=== PATIENT | male | born 1965 | race Two or more races ===

== ENCOUNTER → 2022-09-11 09:05 | Outpatient (BNVA) | payer OTHER, SELFPAY | PROVIDERS: PCP Registered Nurse; Visit Provider Nurse Practitioner Family | DX: R35.0 Frequency of micturition (principal); R35.1 Nocturia; R39.12 Poor urinary stream | CPT/HCPCS: 51798; 99202 ==

== ENCOUNTER 2022-10-27 09:21 | Outpatient (REF) | payer OTHER, SELFPAY ==
--- NOTE | ~2022-10-27 | US_ITS ---
EXAMINATION: US RETROPERITONEAL COMPLETE (RENAL) CLINICAL INFORMATION: Nocturia. COMPARISON: None available. TECHNIQUE: Real-time imaging of the kidneys and bladder. FINDINGS: RIGHT KIDNEY: 11.1 x 6.3 x 6.1 cm (SAG x AP x TRV). The kidney is normal in size, contour, and echogenicity. Renal cortical thickness is normal. No calculi or focal parenchymal lesions. No hydronephrosis. Trace renal pelviectasis. Echogenic foci in the lower pole without definite shadowing appears to reflect a vascular reflector. LEFT KIDNEY: 11.3 x 6.3 x 5.4 cm (SAG x AP x TRV). The kidney is normal in size, contour, and echogenicity. Renal cortical thickness is normal. No calculi or focal parenchymal lesions. No hydronephrosis. BLADDER: Well distended. There is equivocal bladder wall thickening measuring 6 mm.. Bilateral ureteral jets are demonstrated. Prevoid bladder volume is 362 mL. Postvoid bladder volume is 59 mL. ADDITIONAL FINDINGS: Prostate volume of 53 which is mildly enlarged. US/US retroperitoneal comp IMPRESSION: Equivocal bladder wall thickening, consider correlation with symptoms of cystitis. Small postvoid bladder residual. Right renal pelviectasis without av hydronephrosis. Prostatomegaly..
[2022-10-27 11:30] LABS: Prostate Specific Antigen 0.71 ng/mL (<0.05-4.0)
== END 2022-10-27 09:22 | disposition home or self-care (01) ==
LOC: HO.US 09:21
PROVIDERS: PCP Registered Nurse; Visit Provider Nurse Practitioner Family
DX: Z12.5 Encounter for screening for malignant neoplasm of prostate (principal); R35.1 Nocturia; R35.0 Frequency of micturition
CPT/HCPCS: 36415; 76770; 84153

== ENCOUNTER → 2022-11-12 09:37 | Outpatient (BNVA) | payer OTHER, SELFPAY | PROVIDERS: PCP Registered Nurse; Visit Provider Nurse Practitioner Family | DX: R39.12 Poor urinary stream (principal); R35.0 Frequency of micturition; R35.1 Nocturia; N52.9 Male erectile dysfunction, unspecified | CPT/HCPCS: 51798; 99212 ==

== ENCOUNTER 2023-02-15 09:25 | Outpatient (AMB) | payer OTHER, SELFPAY ==
--- NOTE | 2023-02-15 09:26 | A.OFFVIS_ITS ---
Intake Intake Visit Reasons: 3m/PVR Intake Note: Patient is present for follow up nocturia/erectile dysfunction Urology Medications: d/c terazosin, tadalafil Blood Thinner: none PVR: 32ml's Cardiology Technologist Required: Yes Cardiology Technologist Name: Grant (Alis) Accompanied by: Self / Same As Patient Allergies No Known Allergies Allergy (Verified 02/15/23 10:11) Medication List - Last Reconciled 02/15/23 by CLAUDINE Browne tadalafil (Cialis) 20 mg PO DAILY PRN 90 days tadalafil (Cialis) 5 mg PO DAILY 90 days HPI HPI Comments History of Present Illness Details Florencia is a 57 year old Ukarine/Ghanaian speaking male patient of Dr. Vega. He presents to the office today for follow a follow up. Of note, patient was previously seen approximately 3 months at which time he was started on low dose cialis daily and PRN on demand for sexual activity. In discussion with the patient today he reports improvement in erectile dysfunction with low- dose Cialis daily and p.r.n. on demand. He discusses utilizing 5-10 mg on demand for sexual activity with good effect. However, he continues to report lower urinary tract symptoms. He reports he continues with lower abdominal/bladder pressure and discomfort and feelings of incomplete bladder emptying. Patient was previously trialed on 5 mg of terazosin daily with increase to 10mg with no improvement. Recent retroperitoneal ultrasound showing bilateral kidneys with no calculi, lesions, and or hydronephrosis. The bladder was well distended. There is equivocal bladder wall thickening measuring 6 mm with reccomendations to consider correlation with symptoms of cystitis. Prevoid bladder volume was approximately 360 mL. Postvoid bladder volume is approximately 60 mL. PSA -11/01-- 0.7. When asked he denies urinary urgency, urinary frequency, incontinence, hematuria, flank pain, fever, and or chills. In office urinalysis within normal limits. PVR 32 mL. Discussed treatment of low-dose antibiotics for question of cystitis versus in office cystoscopy for further assessment evaluation. Discussed at length potential causes for lower urinary tract symptoms. Patient otherwise denies any issues or concerns at this time. [facility] Medical History Benign prostatic hyperplasia with weak urinary stream Chronic midline low back pain without sciatica History of gallstones History of kidney stones Surgical History History of back surgery Review of Systems Const All systems reviewed & are unremarkable except as noted in HPI and below Reports as per HPI Eyes Reports no additional complaints ENT Reports no additional complaints Card Reports no additional complaints Resp Reports no additional complaints GI Reports no additional complaints Reports as per HPI Musc Reports no additional complaints Neuro Reports no additional complaints Psych Reports no additional complaints Endo Reports no additional complaints Jonathan/Lymph Reports no additional complaints Aller/Immun Reports no additional complaints Physical Exam Const General: cooperative, healthy appearing, comfortable, no acute distress, well developed, alert and awake Nutritional Appearance: average body habitus Orientation/consciousness: patient oriented x3 Limitations: no limitations HEENT Head: Yes normal to inspection, Yes normocephalic and Yes atraumatic Ears: hearing grossly normal bilaterally Eyes General: appearance normal, both eyes and all related structures Neck Neck: Yes normal visual inspection and Yes trachea midline Chest Chest palpation & inspection: normal inspection of the chest Resp Effort & Inspection: normal respiratory effort and able to speak in complete sentences Cardio Rate: regular rate GI Inspection: Yes normal to inspection General: Yes no CVA tenderness Back/Spine/Pelvis Back: no CVA tenderness Skin General skin exam: no rashes or lesions noted Neuro General: patient oriented x3 Extrem General: Yes normal to inspection Psych Appearance: grossly normal and well kempt Mental Status: mental status grossly normal Speech and movement: Normal speech and movement present and Clear speech present Affect: normal affect Attitude: cooperative Thought process: Normal thought process present Thought content: Normal thought content present Insight: Good insight present (Psych) Judgement: Good judgement present (Psych) Office Procedures Post Void Residual Post Residual Void Post Void Residual (PVR): 32 [id number] Void Residual by ultrasound Assessment & Plan Assessment & Plan (1) Erectile dysfunction: Code(s): N52.9 - Male erectile dysfunction, unspecified (2) Sensation of pressure in bladder area: Code(s): R39.89 - Other symptoms and signs involving the genitourinary system (3) Incomplete bladder emptying: Code(s): R33.9 - Retention of urine, unspecified Plan In office urinalysis results reviewed with the patient today; as noted above. PVR 32 mL. Continue low-dose 5 mg Cialis with p.r.n. on demand for sexual activity; refills provided Discussed at length question of cystitis and treatment with low-dose antibiotics verses in office cystoscopy for further assessment evaluation. Discussed at length bladder triggers/irritants. Discussed, educated, and instructed on the importance of drinking plenty of water daily. Follow-up in office cystoscopy. Orders: Orders Testosterone, Free/Total Today N52.9 - Male erectile dysfunction, unspecified, R53.83 - Other fatigue AMB Post Void Residual by ultrasound Today R35.1 - Nocturia Medications: Ref[facility]Cial[facility] [id number] 5 mg PO DAILY 90 days 90 tabs 1RF tadalafil (Cialis) administer approximately 30min before sexual activity; do not use more than 1 dose per 24hrs [facility] [id number] 20 mg PO DAILY 90 days PRN 30 tabs 1RF sexual activity Coding Level of Care Code Est Pt Level 3 (39537) Diagnoses Erectile dysfunction N52.9 Sensation of pressure in bladder area R39.89 Incomplete bladder emptying R33.9 CPT Codes Post Residual Void - PVR CPT Code: 91789-Xivl Void Residual by ultrasound ([id number])
== END 2023-02-15 10:28 | disposition home or self-care (01) ==
PROVIDERS: Visit Provider Nurse Practitioner Family
DX: N52.9 Male erectile dysfunction, unspecified (principal); R39.89 Other symptoms and signs involving the genitourinary system; R33.9 Retention of urine, unspecified
CPT/HCPCS: 99213

== ENCOUNTER → 2023-02-15 09:25 | Outpatient (BNVA) | payer OTHER, SELFPAY | PROVIDERS: Visit Provider Nurse Practitioner Family | DX: N52.9 Male erectile dysfunction, unspecified (principal); R39.89 Other symptoms and signs involving the genitourinary system; R33.9 Retention of urine, unspecified | CPT/HCPCS: 51798; 99212 ==

== ENCOUNTER 2023-03-26 09:13 | Outpatient (AMB) | payer OTHER, SELFPAY ==
--- NOTE | 2023-03-26 09:17 | MHC.OFFVIS ---
Intake Intake Visit Reasons: cysto Hairspring Vibrator Name: Tamara [id number] Accompanied by: Self / Same As Patient Allergies No Known Allergies Allergy (Verified 03/26/23 10:10) HPI HPI Comments History of Present Illness Details Florencia is a 57-year-old male who presents today to the office for a follow-up. 03/26/2023? He is followed today for cystoscopy procedure. The patient is a Ukarian speaking male. Certified video associate loan officer was present during the visit, no: [id number]. He has seen Nurse Practitioner Shira Johnson on 02/15/2023 for erectile dysfunction. The patient was advised to continue low-dose 5 mg Cialis with cialis 20 mg p.r.n, and he was advised to follow-up in office for Cystoscopy. I reviewed the retroperitoneum US results from 10/27/2022 revealed equivocal bladder wall thickening. Small postvoid bladder residual. Right renal pelviectasis without av hydronephrosis. Prostatomegaly. I reviewed the PSA results from 10/27/2022 revealed 0.71 ng/mL. Cystoscopy procedure: Consent was obtained to perform cystoscopy procedure. The patient was provided naproxen 500 mg, lidocaine 2 % and ciprofloxacin 500 mg x 1 dose pre-procedure today. Cystoscopy findings: moderate trabeculations, cellule changes and bilobar enlargement of the prostate; no suspicious bladder lesion found. Plan: Continue Cialis 5 mg daily. Start tamsulosin 0.4 mg in the evening. Discussed the side effects of tamsulosin may include retrograde ejaculation. Follow-up with the OUTDOOR RECREATION SPECIALIST in 3 months. [facility] Medical History Chronic midline low back pain without sciatica Benign prostatic hyperplasia with weak urinary stream History of kidney stones History of gallstones Surgical History History of back surgery Review of Systems Const All systems reviewed & are unremarkable except as noted in HPI and below Reports no additional complaints Eyes Reports no additional complaints ENT Reports no additional complaints Card Denies dyspnea Resp Denies cough and Denies dyspnea GI Reports no additional complaints Musc Reports no additional complaints Skin/Breast Denies rash and Denies unusual bruising Neuro Reports no additional complaints Psych Reports no additional complaints Endo Reports no additional complaints Jonathan/Lymph Reports no additional complaints Aller/Immun Reports no additional complaints Physical Exam Const General: healthy appearing, no acute distress and well developed Orientation/consciousness: patient oriented x3 HEENT Head: Yes normocephalic and Yes atraumatic Eyes Conjunctivae: conjunctivae normal Neck Neck: Yes normal visual inspection Chest Chest palpation & inspection: normal inspection of the chest Resp Effort & Inspection: normal respiratory effort Cardio Rate: regular rate GI Inspection: Yes normal to inspection Palpation (GI): Soft to palpation Penis: normal penis Scrotum: scrotum normal Skin General skin exam: no rashes or lesions noted Neuro General: patient oriented x3 Extrem General: No pedal edema Psych Appearance: grossly normal Affect: normal affect Office Procedures Cystoscopy Consent Discussed risk and benefit or proposed procedure with the patient. Information consent for procedure given to the patient. Discussed technical aspects, risks, benefits and alternatives in full. Addressed all of the patient's questions and concerns regarding the procedure. The patient demonstrated knowledge and understanding. They wish to proceed with this procedure. Preparation The patient was prepped in the usual manner. A escort patients was present and in the room. Genitalia was prepped with betadine solution in a sterile manner. Lidocaine Jelly 2% was placed into the urethra and 16Fr flexible Olympus cystoscope was inserted into the meatus after adequate lubrication. Procedure Time out per protocol performed. Bladder Inspection Bladder Inspection: The bladder was inspected in its entirety with utilization retroflexion displaying: Tumor(s): none visualized Trabeculation: Moderate Mucosal Erthema: N/A Orifices: normal shape and position Urethra: normal Cystoscopy findings: prostatic urethra bilobar enlargement, bulbous urethra WNL, no suspicious bladder lesions visualized [id number] DISPOSABLE SCOPE URO-G FLEXIBLE SCOPE Procedure code (CPT) selection complete Office Meds lidocaine HCl 2 % mucosal jelly in applicator Performing Provider: Ross Barragan MD [facility] Document[facility] (not given) by: Ross Barragan MD on 03/26/23 10:48 Dose Route Admin Location Dispensed Lot Number Expiration Date ND Radio Aerial Installer 20 mL intra-urethral mL naproxen 500 mg tablet Performing Provider: Ross Barragan MD [place] [facility] Documented (not given) by: Ross Barragan MD on 03/26/23 10:48 Dose Route Admin Location Dispensed Lot Number Expiration Date NDC Radio Aerial Installer 500 mg PO tab ciprofloxacin HCl 500 mg tablet Performing Provider: Ross Barragan MD [place] [facility] Documented (not given) by: Ross Barragan MD on 03/26/23 10:48 Dose Route Admin Location Dispensed Lot Number Expiration Date NDC Radio Aerial Installer 500 mg PO tab Results AMB Urinalysis, Automated UA Leukoctes 0 Swapnil/uL Last Edit by MADDI Aviles on 03/26/23 10:09 UA Nitrite Negative Last Edit by MADDI Aviles on 03/26/23 10:09 UA Urobilinogen 0.2 mg/dL Last Edit by Berkley Tinsley CCM on 03/26/23 10:09 UA Protein 0 mg/dL Last Edit by Berkley Tinsley CCM on 03/26/23 10:09 UA pH 6.5 Last Edit by Berkley Tinsley CCM on 03/26/23 10:09 UA Blood 0 Michael/uL Last Edit by MADDI Aviles on 03/26/23 10:09 UA Specific [place] 1.015 Last Edit by Berkley Tinsley CCM on 03/26/23 10:09 UA Ketone Negative Last Edit by Berkley Tinsley CCM on 03/26/23 10:09 UA Bilirubin 0 mg/dL Last Edit by Berkley Tinsley CCM on 03/26/23 10:09 UA Glucose 0 mg/dL Last Edit by Berkley Tinsley [facility] on 03/26/23 10:09 Results Reviewed Results Reviewed: Laboratory Last Values Urine pH (Auto) 6.5 03/26/23 10:03 Specific [place] (Auto) 1.015 03/26/23 10:03 Urine Protein (Auto) 0 mg/dL 03/26/23 10:03 Glucose (UA)(Auto) 0 mg/dL 03/26/23 10:03 Urine Ketones (Auto) Negative 03/26/23 10:03 Urine Blood (Auto) 0 Michael/uL 03/26/23 10:03 Urine Nitrite (Auto) Negative 03/26/23 10:03 Urine Bilirubin (Auto) 0 mg/dL 03/26/23 10:03 Urine Urobilinogen (Auto) 0.2 mg/dL 03/26/23 10:03 Leukocyte Esterase (Auto) 0 Swapnil/uL 03/26/23 10:03 Date of Service: 10/27/22 EXAMINATION:? US RETROPERITONEAL COMPLETE (RENAL) CLINICAL INFORMATION: Nocturia. COMPARISON:? None available. FINDINGS: RIGHT KIDNEY: 11.1 x 6.3 x 6.1 cm (SAG x AP x TRV). The kidney is normal in size, contour, and echogenicity. Renal cortical thickness is normal. No calculi or focal parenchymal lesions. No hydronephrosis. Trace renal pelviectasis. Echogenic foci in the lower pole without definite shadowing appears to reflect a vascular reflector. LEFT KIDNEY: 11.3 x 6.3 x 5.4 cm (SAG x AP x TRV). The kidney is normal in size, contour, and echogenicity. Renal cortical thickness is normal. No calculi or focal parenchymal lesions. No hydronephrosis. BLADDER: Well distended. There is equivocal bladder wall thickening measuring 6 mm.. Bilateral ureteral jets are demonstrated. Prevoid bladder volume is 362 mL. Postvoid bladder volume is 59 mL. ADDITIONAL FINDINGS: Prostate volume of 53 which is mildly enlarged. IMPRESSION:? Equivocal bladder wall thickening, consider correlation with symptoms of cystitis. Small postvoid bladder residual. Right renal pelviectasis without av hydronephrosis. Prostatomegaly. Assessment & Plan Assessment & Plan (1) Bladder wall thickening: Code(s): N32.89 - Other specified disorders of bladder Plan Continue Cialis 5 mg daily. Started on tamsulosin 0.4 mg in the evening. Discussed the side effects of tamsulosin may include retrograde ejaculation. Follow-up with the OUTDOOR RECREATION SPECIALIST in 3 months. Orders: Orders AMB Urinalysis Automated Today Z13.9 - Encounter for screening, unspecified AMB Cystoscopy Today - Other specified disorders of bladder Medications: New tamsulosin (Flomax) 0.4 mg PO BEDTIME 90 caps 2RF naproxen 500 mg PO ONCE 1 tab 0RF N32.89 - Other specified disorders of bladder lidocaine HCl 2% 20 mL intra-urethral ONCE 10 mL 0RF N32.89 - Other specified disorders of bladder ciprofloxacin HCl 500 mg PO ONCE 1 tab 0RF N32.89 - Other specified disorders of bladder Patient Instructions: The patient had an opportunity to ask questions regarding treatment plan. All questions were answered. Imaging, Laboratory studies and physical exam results were discussed and reviewed in detail. No major barriers to understanding were identified. The patient expressed understanding and agreement with the above treatment plan.? ? ? The patient is aware they should contact our office by phone for worsening of their current condition or the appearance of new symptoms. Compliance is encouraged with any medications and followup testing that is ordered.? ? ? It is a privilege to be allowed the opportunity to participate in the urologic care of your patient. If you have any questions or concerns regarding treatment for the above conditions please do not hesitate to contact me. The office telephone contact is [phone].? ? ? This note is constructed in part using voice recognition software. While every effort has been made to ensure accuracy drill doctor errors may have been included.? ? ? Yours sincerely,? ? ? Ross Barragan MD? ? ? Coding Level of Care Code Est Pt Level 3 (23815) Diagnoses Bladder wall thickening N32.89 CPT Codes Cystoscopy - CPT: 63768-[id number] ([id number])
== END 2023-03-26 10:50 | disposition home or self-care (01) ==
PROVIDERS: PCP Registered Nurse; Visit Provider Urology
DX: N32.89 Other specified disorders of bladder (principal); Z13.9 Encounter for screening, unspecified
CPT/HCPCS: 52000; 99213

== ENCOUNTER → 2023-03-26 09:13 | Outpatient (BNVA) | payer OTHER, SELFPAY | PROVIDERS: PCP Registered Nurse; Visit Provider Urology | DX: N32.89 Other specified disorders of bladder (principal) | CPT/HCPCS: 52000; 81003; 99212 ==

== ENCOUNTER 2023-06-25 10:13 | Outpatient (AMB) | payer OTHER, SELFPAY ==
--- NOTE | 2023-06-25 10:20 | A.OFFVIS_ITS ---
Intake Intake Visit Reasons: 3m follow up Intake Note: Patient is present for follow up nocturia/erectile dysfunction Urology Medications: tadalafil, tamsulosin Blood Thinner: none PVR: 0ml's Sign Manufacturer Required: Yes Sign Manufacturer Name: [id number] utilizd [place] INTERPR Accompanied by: Self / Same As Patient Allergies No Known Allergies Allergy (Verified 06/25/23 13:41) Medication List - Last Reconciled 06/25/23 by CLAUDINE Browne tadalafil (Cialis) 5 mg PO DAILY 90 days tadalafil (Cialis) 20 mg PO DAILY PRN 90 days tamsulosin (Flomax) 0.4 mg PO BEDTIME HPI HPI Comments History of Present Illness Details Florencia is a 58 year old Ukarine/Macedonian speaking male patient of Dr. Vega. He presents to the office today for follow a follow up of his ED and lower urinary tract symptoms. Of note, patient was previously seen approximately 3 months at which time he underwent an office cystoscopy with Dr. Cordova which noted moderate trabeculations, cellule changes and bipolar enlargement of the prostate; no suspicious bladder lesions found. In discussion with the patient today he reports improvement in erectile dysfunction with low-dose Cialis daily and p.r.n. on demand. He reports feeling lower urinary tract symptoms of incomplete bladder emptying and bladder pressure have also improved on 0.4 mg of Flomax daily. He currently denies any bothersome urinary issues or concerns. Previous workup has included a retroperitoneal ultrasound noting bilateral kidneys with no calculi, lesions, and or hydronephrosis. The bladder was well distended. There is equivocal bladder wall thickening measuring 6 mm with reccomendations to consider correlation with symptoms of cystitis. Prevoid bladder volume was approximately 360 mL. Postvoid bladder volume is approximately 60 mL. PSA -11/01-- 0.7. When asked he denies urinary urgency, urinary frequency, incontinence, hematuria, flank pain, fever, and or chills. In office urinalysis results reviewed with the patient today. PVR 0 mL. Patient otherwise denies any issues or concerns at this time. [facility] Medical History Chronic midline low back pain without sciatica Benign prostatic hyperplasia with weak urinary stream History of kidney stones History of gallstones Surgical History History of back surgery Review of Systems Const All systems reviewed & are unremarkable except as noted in HPI and below Reports as per HPI Eyes Reports no additional complaints ENT Reports no additional complaints Card Reports no additional complaints Resp Reports no additional complaints GI Reports no additional complaints Reports as per HPI Musc Reports no additional complaints Neuro Reports no additional complaints Psych Reports no additional complaints Endo Reports no additional complaints Jonathan/Lymph Reports no additional complaints Aller/Immun Reports no additional complaints Physical Exam Const General: cooperative, healthy appearing, comfortable, no acute distress, well developed, alert and awake Nutritional Appearance: average body habitus Orientation/consciousness: patient oriented x3 Limitations: no limitations HEENT Head: Yes normal to inspection, Yes normocephalic and Yes atraumatic Ears: hearing grossly normal bilaterally Eyes General: appearance normal, both eyes and all related structures Neck Neck: Yes normal visual inspection and Yes trachea midline Chest Chest palpation & inspection: normal inspection of the chest Resp Effort & Inspection: normal respiratory effort and able to speak in complete sentences Cardio Rate: regular rate GI Inspection: Yes normal to inspection General: Yes no CVA tenderness Back/Spine/Pelvis Back: no CVA tenderness Skin General skin exam: no rashes or lesions noted Neuro General: patient oriented x3 Extrem General: Yes normal to inspection Psych Appearance: grossly normal and well kempt Mental Status: mental status grossly normal Speech and movement: Normal speech and movement present and Clear speech present Affect: normal affect Attitude: cooperative Thought process: Normal thought process present Thought content: Normal thought content present Insight: Good insight present (Psych) Judgement: Good judgement present (Psych) Office Procedures Post Void Residual Post Residual Void Post Void Residual (PVR): 0 [id number] Void Residual by ultrasound Results AMB Urinalysis, Automated UA Leukoctes 0 Swapnil/uL Last Edit by [employer] on 06/25/23 10:35 UA Nitrite Negative Last Edit by [email or web address] on 06/25/23 10:35 UA Urobilinogen 0.2 mg/dL Last Edit by [employer] on 06/25/23 10:35 UA Protein 0 mg/dL Last Edit by [employer] on 06/25/23 10:35 UA pH 6.0 Last Edit by [employer] on 06/25/23 10:35 UA Blood 10 Michael/uL Last Edit by Estrella Godfrey on 06/25/23 10:35 UA Specific [place] 1.015 Last Edit by Estrella Godfrey on 06/25/23 10:35 UA Ketone Negative Last Edit by Estrella Godfrey on 06/25/23 10:35 UA Bilirubin 0 mg/dL Last Edit by Estrella Godfrey on 06/25/23 10:35 UA Glucose 0 mg/dL Last Edit by Estrella Godfrey on 06/25/23 10:35 Results Reviewed Results Reviewed: Laboratory Last Values Urine pH (Auto) 6.0 06/25/23 10:22 Specific [place] (Auto) 1.015 06/25/23 10:22 Urine Protein (Auto) 0 mg/dL 06/25/23 10:22 Glucose (UA)(Auto) 0 mg/dL 06/25/23 10:22 Urine Ketones (Auto) Negative 06/25/23 10:22 Urine Blood (Auto) 10 Michael/uL 06/25/23 10:22 Urine Nitrite (Auto) Negative 06/25/23 10:22 Urine Bilirubin (Auto) 0 mg/dL 06/25/23 10:22 Urine Urobilinogen (Auto) 0.2 mg/dL 06/25/23 10:22 Leukocyte Esterase (Auto) 0 Swapnil/uL 06/25/23 10:22 Assessment & Plan Assessment & Plan (1) Bladder wall thickening: Code(s): N32.89 - Other specified disorders of bladder (2) Erectile dysfunction: Code(s): N52.9 - Male erectile dysfunction, unspecified (3) Urinary frequency: Code(s): R35.0 - Frequency of micturition Plan In office urinalysis results reviewed with the patient today; as noted above. PVR 0 mL. Patient reports significant improvement in ED and lower urinary tract symptoms will continue Flomax 0.4 mg daily and 5 mg of Cialis daily; refills provided Will obtain LH, SHBG, testosterone free and total, FSH, prolactin, and Estradiol for further assessment and evaluation. Follow-up in 3 months with labs and PVR to be completed prior; or sooner with any issues, concerns, and or questions. Orders: Orders AMB Post Void Residual by ultrasound Today R33.9 - Retention of urine, unspecified Lutenizing Hormone Today N52.9 - Male erectile dysfunction, unspecified Sex Hormone Binding Globulin Today N52.9 - Male erectile dysfunction, unspecified AMB Urinalysis Automated Today Z13.9 - Encounter for screening, unspecified Testosterone, Free/Total Today N52.9 - Male erectile dysfunction, unspecified Follicle Stimulating Hormone Today N52.9 - Male erectile dysfunction, unspecified Prolactin Today N52.9 - Male erectile dysfunction, unspecified Estradiol Ultra Sensitive Today N52.9 - Male erectile dysfunction, unspecified Medications: Changed From tadalafil (Cialis) administer approximately 30min before sexual activity; do not use more than 1 dose per 24hrs [facility] [address] [id number] 20 mg PO DAILY PRN 30 tabs 1RF sexual activity 90 days To tadalafil (Cialis) administer approximately 30min before sexual activity; do not use more than 1 dose per 24hrs [facility] [address] [id number] 20 mg PO DAILY PRN 20 tabs 1RF sexual activity 30 days Refilled tadalafil (Cialis) [facility] [address] [id number] 5 mg PO DAILY 90 tabs 3RF 90 days Patient Instructions: The patient had an opportunity to ask questions regarding the treatment plan. All questions were answered. Physical exam, labs, and imaging were discussed and reviewed in detail. As well as risks, benefits, and discussion of treatment choices. No major barriers to understanding were identified. The patient expressed understanding and agreement with the above treatment plan. The patient was made aware they should contact our office by phone for worsening of their current condition, the appearance of new symptoms, or with any qu estions or concerns. Compliance is encouraged with any medications and follow up testing that is ordered. It is a privilege to be allowed the opportunity to participate in? your urological care.? Again, if you have any questions or concerns If you have any questions or concerns please do not hesitate to contact me. The office is [phone]. This note is constructed using voice recognition software. While every effort has been made to ensure accuracy probation worker errors may have been included. Yours sincerely, CLAUDINE Browne Coding Level of Care Code Est Pt Level 3 (59457) Diagnoses Bladder wall thickening N32.89 Erectile dysfunction N52.9 Urinary frequency R35.0 CPT Codes Post Residual Void - PVR CPT Code: 51654-Qcva Void Residual by ultrasound ([id number])
== END 2023-06-25 11:21 | disposition home or self-care (01) ==
PROVIDERS: PCP Registered Nurse; Visit Provider Nurse Practitioner Family
DX: N32.89 Other specified disorders of bladder (principal); N52.9 Male erectile dysfunction, unspecified; R35.0 Frequency of micturition; Z13.9 Encounter for screening, unspecified
CPT/HCPCS: 99213

== ENCOUNTER → 2023-06-25 10:13 | Outpatient (BNVA) | payer OTHER, SELFPAY | PROVIDERS: PCP Registered Nurse; Visit Provider Nurse Practitioner Family | DX: N32.89 Other specified disorders of bladder (principal); N52.9 Male erectile dysfunction, unspecified; R35.0 Frequency of micturition | CPT/HCPCS: 51798; 81003; 99212 ==

== ENCOUNTER 2023-09-20 07:57 | Outpatient (REF) | payer OTHER, SELFPAY ==
[2023-09-21 14:38] LABS: Follicle Stimulating Hormone 7.6 mIU/mL (1.4-12.8); Lutenizing Hormone 4.1 mIU/mL (1.5-9.3); Prolactin 4.9 ng/mL (2.0-18.0)
[2023-09-22 11:52] LABS: Sex Hormone Binding Globulin 45 nmol/L (22-77)
[2023-09-24 15:58] LABS: Testosterone, Free 80.8 pg/mL (35.0-155.0); Testosterone, Total 518 ng/dL (250-1100)
[2023-09-25 21:03] LABS: Estradiol Ultra Sensitive 27 pg/mL (< OR = 29)
== END 2023-09-20 07:58 | disposition home or self-care (01) ==
LOC: HO.LAB 07:57
PROVIDERS: PCP Physician Assistant; Visit Provider Nurse Practitioner Family
DX: N52.9 Male erectile dysfunction, unspecified (principal)
CPT/HCPCS: 36415; 82670; 83001; 83002; 84146; 84270; 84402; 84403

== ENCOUNTER 2023-09-23 09:46 | Outpatient (AMB) | payer OTHER, SELFPAY ==
--- NOTE | 2023-09-23 10:07 | MHC.OFFVIS ---
Intake Intake Visit Reasons: 3m/labs Intake Note: Patient is present for follow up nocturia/erectile dysfunction/labs Urology Medications: tadalafil, tamsulosin Blood Thinner: none PVR: 0ml's Digital Editor Required: Yes Digital Editor Name: Waldemar Accompanied by: Self / Same As Patient Allergies No Known Allergies Allergy (Verified 09/23/23 22:39) Medication List - Last Reconciled 09/23/23 by ELLYN Browne-MARQUITA tadalafil (Cialis) 5 mg PO DAILY 90 days tadalafil (Cialis) 20 mg PO DAILY PRN 30 days tamsulosin (Flomax) 0.4 mg PO BEDTIME HPI HPI Comments History of Present Illness Details Florencia is a 58 year old [place] speaking male patient of Dr. Vega. He presents to the office today for follow a follow up of his ED and lower urinary tract symptoms. Of note, patient was previously seen approximately 3 months at which time he was prescribed low-dose Cialis as well as p.r.n. dosing prior to sexual activity. In discussion with the patient today he reports noting significant improvement in obtaining and maintaining erections with Cialis as prescribed. Labs were ordered during last office visit in these results were reviewed with the patient today. 10/02- FSH 7.6, LH 4.1, prolactin 4.9, SHBG 45, estradiol 27, total testosterone 518, Free testosterone 80.8 He also has previously underwent an in office cystoscopy with Dr. Cordova late last year for ongoing lower urinary tract symptoms which noted moderate trabeculations, cellule changes and bipolar enlargement of the prostate; no suspicious bladder lesions found. He reports feeling lower urinary tract symptoms of incomplete bladder emptying and bladder pressure have also improved on 0.4 mg of Flomax daily. He currently denies any bothersome urinary issues or concerns. Previous workup has included a retroperitoneal ultrasound noting bilateral kidneys with no calculi, lesions, and or hydronephrosis. The bladder was well distended. There is equivocal bladder wall thickening measuring 6 mm with reccomendations to consider correlation with symptoms of cystitis. Prevoid bladder volume was approximately 360 mL. Postvoid bladder volume is approximately 60 mL. PSA -11/01-- 0.7. When asked he denies urinary urgency, urinary frequency, incontinence, hematuria, flank pain, fever, and or chills. In office urinalysis results reviewed with the patient today. PVR 0 mL. Patient otherwise denies any issues or concerns at this time. [facility] Medical History Chronic midline low back pain without sciatica Benign prostatic hyperplasia with weak urinary stream History of kidney stones History of gallstones Surgical History History of back surgery Review of Systems Const All systems reviewed & are unremarkable except as noted in HPI and below Reports as per HPI Eyes Reports no additional complaints ENT Reports no additional complaints Card Reports no additional complaints Resp Reports no additional complaints GI Reports no additional complaints Reports as per HPI Musc Reports no additional complaints Neuro Reports no additional complaints Psych Reports no additional complaints Endo Reports no additional complaints Jonathan/Lymph Reports no additional complaints Aller/Immun Reports no additional complaints Physical Exam Const General: cooperative, healthy appearing, comfortable, no acute distress, well developed, alert and awake Nutritional Appearance: average body habitus Orientation/consciousness: patient oriented x3 Limitations: no limitations HEENT Head: Yes normal to inspection, Yes normocephalic and Yes atraumatic Ears: hearing grossly normal bilaterally Eyes General: appearance normal, both eyes and all related structures Neck Neck: Yes normal visual inspection and Yes trachea midline Chest Chest palpation & inspection: normal inspection of the chest Resp Effort & Inspection: normal respiratory effort and able to speak in complete sentences Cardio Rate: regular rate GI Inspection: Yes normal to inspection General: Yes no CVA tenderness Back/Spine/Pelvis Back: no CVA tenderness Skin General skin exam: no rashes or lesions noted Neuro General: patient oriented x3 Extrem General: Yes normal to inspection Psych Appearance: grossly normal and well kempt Mental Status: mental status grossly normal Speech and movement: Normal speech and movement present and Clear speech present Affect: normal affect Attitude: cooperative Thought process: Normal thought process present Thought content: Normal thought content present Insight: Good insight present (Psych) Judgement: Good judgement present (Psych) Office Procedures Post Void Residual Post Residual Void Post Void Residual (PVR): 0 68055-Geqs Void Residual by ultrasound Results AMB Urinalysis, Automated UA Leukoctes 0 Swapnil/uL Last Edit by Estrella Godfrey on 09/23/23 10:20 UA Nitrite Negative Last Edit by Estrella Godfrey on 09/23/23 10:20 UA Urobilinogen 0.2 mg/dL Last Edit by Estrella Godfrey on 09/23/23 10:20 UA Protein 0 mg/dL Last Edit by Estrella Godfrey on 09/23/23 10:20 UA pH 7.0 Last Edit by Estrella Godfrey on 09/23/23 10:20 UA Blood 0 Michael/uL Last Edit by Estrella Godfrey on 09/23/23 10:20 UA Specific [place] 1.010 Last Edit by Estrella Godfrey on 09/23/23 10:20 UA Ketone Negative Last Edit by Estrella Godfrey on 09/23/23 10:20 UA Bilirubin 0 mg/dL Last Edit by Estrella Godfrey on 09/23/23 10:20 UA Glucose 0 mg/dL Last Edit by Estrella Godfrey on 09/23/23 10:20 Results Reviewed Results Reviewed: Laboratory Last Values Urine pH (Auto) 7.0 09/23/23 10:11 Specific [place] (Auto) 1.010 09/23/23 10:11 Urine Protein (Auto) 0 mg/dL 09/23/23 10:11 Glucose (UA)(Auto) 0 mg/dL 09/23/23 10:11 Urine Ketones (Auto) Negative 09/23/23 10:11 Urine Blood (Auto) 0 Michael/uL 09/23/23 10:11 Urine Nitrite (Auto) Negative 09/23/23 10:11 Urine Bilirubin (Auto) 0 mg/dL 09/23/23 10:11 Urine Urobilinogen (Auto) 0.2 mg/dL 09/23/23 10:11 Leukocyte Esterase (Auto) 0 Swapnil/uL 09/23/23 10:11 Assessment & Plan Assessment & Plan (1) Incomplete bladder emptying: Code(s): R33.9 - Retention of urine, unspecified (2) Bladder wall thickening: Code(s): N32.89 - Other specified disorders of bladder (3) Erectile dysfunction: Code(s): N52.9 - Male erectile dysfunction, unspecified (4) Weak urinary stream: Code(s): R39.12 - Poor urinary stream (5) Urinary frequency: Code(s): R35.0 - Frequency of micturition (6) Nocturia: Code(s): R35.1 - Nocturia Plan In office urinalysis results reviewed with the patient today; as noted above. Recent labs reviewed with the patient today; as noted above. PVR 0 mL. Continue Flomax, Cialis, and p.r.n. Cialis as prescribed; refills provided. Patient currently denies any bothersome urinary issues or concerns. He reports be happy with current voiding parameters. Will obtain PSA in 6 months Follow-up in 6 months with PSA to be completed prior and PVR at next office visit; or sooner with any issues, concerns, and or questions. Orders: Orders AMB Post Void Residual by ultrasound 09/23/23 R33.9 - Retention of urine, unspecified Prostate Specific Antigen 6 Months R33.9 - Retention of urine, unspecified AMB Urinalysis Automated 09/23/23 Z13.9 - Encounter for screening, unspecified Medications: Refilled tamsulosin (Flomax) 0.4 mg PO BEDTIME 90 caps 2RF tadalafil (Cialis) administer approximately 30min before sexual activity; do not use more than 1 dose per 24hrs [facility] [address] [id number] 20 mg PO DAILY PRN 20 tabs 3RF sexual activity 30 days Patient Instructions: The patient had an opportunity to ask questions regarding the treatment plan. All questions were answered. Physical exam, labs, and imaging were discussed and reviewed in detail. As well as risks, benefits, and discussion of treatment choices. No major barriers to understanding were identified. The patient expressed understanding and agreement with the above treatment plan. The patient was made aware they should contact our office by phone for worsening of their current condition, the appearance of new symptoms, or with any questions or concerns. Compliance is encouraged with any medications and follow up testing that is ordered. It is a privilege to be allowed the opportunity to participate in? your urological care.? Again, if you have any questions or concerns If you have any questions or concerns please do not hesitate to contact me. The office is [phone]. This note is constructed using voice recognition software. While every effort has been made to ensure accuracy it infrastructure consultant errors may have been included. Yours sincerely, CLAUDINE Browne Coding Level of Care Code Est Pt Level 4 (55464) Diagnoses Incomplete bladder emptying R33.9 Bladder wall thickening N32.89 Erectile dysfunction N52.9 Weak urinary stream R39.12 Urinary frequency R35.0 Nocturia R35.1 CPT Codes Post Residual Void - PVR CPT Code: 01484-Aclv Void Residual by ultrasound ([id number]) Time Spent (min) 35
== END 2023-09-23 10:42 | disposition home or self-care (01) ==
PROVIDERS: PCP Registered Nurse; Visit Provider Nurse Practitioner Family
DX: R33.9 Retention of urine, unspecified (principal); N32.89 Other specified disorders of bladder; N52.9 Male erectile dysfunction, unspecified; R39.12 Poor urinary stream; R35.0 Frequency of micturition; R35.1 Nocturia
CPT/HCPCS: 99214

== ENCOUNTER → 2023-09-23 09:46 | Outpatient (BNVA) | payer OTHER, SELFPAY | PROVIDERS: PCP Registered Nurse; Visit Provider Nurse Practitioner Family | DX: R33.9 Retention of urine, unspecified (principal); N32.89 Other specified disorders of bladder; N52.9 Male erectile dysfunction, unspecified; R39.12 Poor urinary stream; R35.0 Frequency of micturition; R35.1 Nocturia; Z79.899 Other long term (current) drug therapy | CPT/HCPCS: 51798; 81003; 99212 ==